=== PATIENT | male | born 1995 | race Caucasian/White ===

== ENCOUNTER 2019-02-08 02:16 | Emergency (ER) | payer BC ==
[~2019-02-08] VITALS: Ht 167.6 cm; Wt 72.7 kg
[2019-02-08 02:16] VITALS: TEMP 98.9
[~2019-02-08 02:16] MED LIST: MOTRIN 800800 MG/TAB PO; NORCO 325 MG-51 TAB PO; PREDNISONE20 MG PO
[2019-02-08 07:00] VITALS: BP 123/70; PULSE 78
== END 2019-02-08 07:53 | disposition home or self-care (01) ==
LOC: COL.ER 02:16
DX: F10.129 Alcohol abuse with intoxication, unspecified (principal); R11.10 Vomiting, unspecified; Y90.7 Blood alcohol level of 200-239 mg/100 ml
CPT/HCPCS: J2405; J7030